=== PATIENT | female | born 1995 ===

== ENCOUNTER 2016-11-21 12:05 | Emergency (ER) | payer OTHER ==
--- NOTE | 2016-11-21 13:48 | RAD ---
Indication: Medial knee pain. 4 views of the knee demonstrates no fracture. No joint effusion is noted. No other bone or joint abnormality is identified. IMPRESSION: No fracture of the knee is noted.
--- NOTE | 2016-11-21 14:07 | ED ---
Lower Extremity - HPI Summary HPI Summary: Pt here w/ Rt knee pain since dancing 2 nights ago. Was swinging her hips when she felt a "pop" along the medial aspect of her Rt knee. Has had pain and swelling which she's tried to control with rest, ice, elevation. Feels better today but came in as she was concerned about dislocation. 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 No surgery. Denies numbness, tingling, weakness here. Has radiating pain into anterior tibial region with some movements - worse w/ weight bearing, better w/ rest/elevation. - History of Current Complaint Chief Complaint: EDExtremityLower Stated Complaint: RT KNEE INJURY Time Seen by Provider: 11/21/16 12:48 Hx Obtained From: Patient Pain Intensity: 4 - Allergies/Home Medications Allergies/Adverse Reactions: Allergies Allergy/AdvReac Type Severity Reaction Status Date / Time Ibuprofen Allergy Swelling Verified 11/21/16 12:16 Of Face,Lips,& Throat Penicillins [PCN] Allergy Swelling Verified 11/21/16 12:16 Of Face,Lips,& Throat Home Medications: Home Medications NK [No Home Medications Reported] 11/21/16 [History Confirmed 11/21/16] PMH/Surg Hx/FS Hx/Imm Hx Previously Healthy: Yes Endocrine/Hematology History: Denies: Hx Anticoagulant Therapy, Hx Blood Disorders Infectious Disease History: No Infectious Disease History: Denies: Traveled Outside the [place] in Last 30 Days - Family History Known Family History: Positive: None - Social History Occupation: Student Lives: With Family - roommates Alcohol Use: Weekly Hx Substance Use: No Substance Use Type: Reports: None Hx Tobacco Use: No Smoking Status (MU): Never Smoked Tobacco Review of Systems Negative: Chest Pain Negative: Shortness Of Breath Negative: Vomiting, Nausea Positive: no symptoms reported Musculoskeletal: Other - see HPI Negative: Bruising Neurological: Negative Psychological: Normal All Other Systems Reviewed And Are Negative: Yes Physical Exam Triage Information Reviewed: Yes Vital Signs On Initial Exam: Initial Vitals Temp Pulse Resp BP Pulse Ox 97.9 F 93 16 138/68 97 11/21/16 12:14 11/21/16 12:14 11/21/16 12:14 11/21/16 12:14 11/21/16 12:14 Vital Signs Reviewed: Yes Appearance: Positive: Well-Appearing, No Pain Distress, Well-Nourished Skin: Positive: Warm, Dry - no erythema, no ecchymosis over affected area Head/Face: Positive: Normal Head/Face Inspection Eyes: Positive: Normal, EOMI, Conjunctiva Clear ENT: Positive: Hearing grossly normal, Pharynx normal - mucosa moist Respiratory/Lung Sounds: Positive: Breath Sounds Present Cardiovascular: Positive: Normal, Pulses are Symmetrical in both Upper and Lower Extremities. Negative: Leg Edema Left, Leg Edema Right Musculoskeletal: Positive: Strength/ROM Intact, Other - Rt medial joint line TTP (mild); no becky laxity appreciated w/ special tests; equivocal Theresa for Rt medial knee (no clicking/popping - mild pain) Neurological: Positive: Normal, Sensory/Motor Intact, Alert, Oriented to Person Place, Time, CN Intact II-III Psychiatric: Positive: Normal Diagnostics - Vital Signs Vital Signs Temp Pulse Resp BP Pulse Ox 11/21/16 12:14 97.9 F 93 16 138/68 97 - Laboratory Lab Statement: Any lab studies that have been ordered have been reviewed, and results considered in the medical decision making process. Lower Extremity Course/Dx - Course Course Of Treatment: Suspect medial meniscus injury - advised STONE and f/u w/ Robert in 1-2 weeks. Explained to pt if sx are same or worse at that time, may benefit from MRI and ortho consult. Pt agrees w/ plan. - Diagnoses Provider Diagnoses: Right knee sprain Discharge - Discharge Plan Condition: Stable Disposition: HOME Patient Education Materials: Knee Sprain (ED), Crutch Instructions (ED) Forms: *Physical Education Release Referrals: [facility] ROBERT Carrillo [Primary Care Provider] - Additional Instructions: Follow-up with [facility] in 1-2 weeks. Use crutches to assist with healing over the next 2 weeks - advance to weight bearing as tolerated. Ice. Elevate. *if symptoms worsen prior, (ie. pain is poorly controlled, weakness, etc), return to ED
[2016-11-21 14:23] VITALS: BP 117/51
== END 2016-11-21 14:11 | disposition home or self-care (01) ==
LOC: ED 12:05
DX: S83.91XA Sprain of unspecified site of right knee, initial encounter (principal); X50.9XXA Other and unspecified overexertion or strenuous movements or postures, initial encounter; Y93.41 Activity, dancing; Y92.9 Unspecified place or not applicable; Z88.0 Allergy status to penicillin
CPT/HCPCS: 99282